=== PATIENT | female | born 1975 | race African-American/Black ===

== ENCOUNTER 2021-01-06 12:10 | Emergency (ER) | payer OTHER ==
[~2021-01-06] VITALS: Ht 149.9 cm; Wt 44.5 kg
--- NOTE | 2021-01-06 15:05 | RAD ---
Indications: Trauma and pain. FINDINGS: Three-view lumbar spine series: Transverse processes are intact. No compression fracture or discitis or lytic process or anterolisthesis is evident. 3 view study of the right shoulder: No acute fracture or dislocation or lytic process or AC joint sep aration is seen. IMPRESSION: No acute fracture. Electronically signed by: Patrice Carrion MD (01/06/2021 3:02 PM) [id number]
[2021-01-06] MEDS ORDERED: CYCL10TA2 PO (15:32)
[2021-01-06] MEDS ORDERED: NAPR-514 PO (15:32)
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
[2021-01-06 15:35] VITALS: BP 114/72
== END 2021-01-06 15:35 | disposition home or self-care (01) ==
LOC: ER 12:10
DX: M54.5 Low back pain (principal); M25.511 Pain in right shoulder; G89.11 Acute pain due to trauma; K21.9 Gastro-esophageal reflux disease without esophagitis; Z90.49 Acquired absence of other specified parts of digestive tract; V49.59XA Passenger injured in collision with other motor vehicles in traffic accident, initial encounter; Y93.89 Activity, other specified; Y92.488 Other paved roadways as the place of occurrence of the external cause; Y99.8 Other external cause status
CPT/HCPCS: 72100; 73030; 99283; 99284